=== PATIENT | female | born 1990 ===

== ENCOUNTER 2018-08-10 09:40 | Emergency (ER) | payer MEDICAID, OTHER ==
[2018-08-10] MEDS ORDERED: Sodium Chloride 0.9% 1,000 ML IV STA (10:06)
--- NOTE | 2018-08-10 10:09 | ED PDOC ---
HPI: Head Injury Time Seen by Provider: 08/10/18 09:55 History Per: Patient Injury Occurred (Timing): Days Ago: (3) Onset/Duration Of Symptoms: Days (3) Patient States: Fell Striking Head Severity: Moderate Loss Of Consciousness: Unwitnessed Additional Complaint(s): Possible LOC 3 days ago while showering. Pt has no recollection of event but thinks she fell and hit head. No precedent chest pain palpitaions, weakness or headache, but has since experienced headache, dizziness, blurry vision, nausea and numbness both hands. Past Medical History - Medical History PMH: Arthritis, HTN, Hypothyroidism - Surgical History Surgical History: Back Surgery, Cholecystectomy, Other surgeries: Left ovarian cyst removal - Family History Family History: States: Unknown Family Hx - Immunization History Hx Tetanus Toxoid Vaccination: No Hx Influenza Vaccination: Yes Hx Pneumococcal Vaccination: No - Home Medications Home Medications: Ambulatory Orders Medication Instructions Recorded Naproxen [Naprosyn] 500 mg PO Q12H #20 tab 08/10/18 Ondansetron [Zofran] 4 mg PO Q8H #10 tab 08/10/18 - Allergies Allergies/Adverse Reactions: Allergies Allergy/AdvReac Type Severity Reaction Status Date / Time morphine Allergy Mild RASH Verified 10/01/16 12:05 Review of Systems ROS Statement: Except As Marked, All Systems Reviewed And Found Negative Eyes: Positive for: Vision Change Cardiovascular: Negative for: Chest Pain, Palpitations Gastrointestinal: Positive for: Nausea. Negative for: Abdominal Pain Musculoskeletal: Positive for: Neck Pain, Back Pain Neurological: Positive for: Numbness, Headache, Other (Syncope) Physical Exam - Reviewed Nursing Documentation Reviewed: Yes Vital Signs Reviewed: Yes - Physical Exam Appears: Positive for: Non-toxic, No Acute Distress Head Exam: Positive for: ATRAUMATIC, NORMAL INSPECTION, NORMOCEPHALIC Skin: Positive for: Normal Color, Warm, DRY Eye Exam: Positive for: EOMI, Normal appearance, PERRL ENT: Positive for: Normal ENT Inspection Neck: Positive for: Normal, Painless ROM Cardiovascular/Chest: Positive for: Regular Rate, Rhythm Respiratory: Positive for: CNT, Normal Breath Sounds Gastrointestinal/Abdominal: Positive for: Normal Exam, Soft Back: Positive for: Normal Inspection Extremity: Positive for: Normal ROM Neurologic/Psych: Positive for: Alert, Oriented. Negative for: Motor/Sensory Deficits - Laboratory Results Result Diagrams: 08/10/18 12:00 08/10/18 12:00 Medical Decision Making Medical Decision Making: Syncope with head injury and subsequent concussion sxs. Will obtain labs and EKG to determine reason for syncope and CT head for head injury and concussive sxs. No lab, EKG or CT findings to account for syncope but as sxs were from 3 days ago can have furtehr w/u as outpt. Will refer to Neuro for concussive sxs. Disposition - Clinical Impression Clinical Impression: Syncope, Concussion - Patient ED Disposition Is Patient to be Admitted: No Counseled Patient/Family Regarding: Studies Performed, Diagnosis, Need For Followup, Rx Given - Disposition Referrals: Kassandra Tello MD [Medical Doctor] - [facility] [Outside] Disposition: Routine/Home Disposition Time: 12:46 Condition: FAIR Prescriptions: Naproxen [Naprosyn] 500 mg PO Q12H #20 tab Ondansetron [Zofran] 4 mg PO Q8H #10 tab Instructions: Syncope (Fainting), Concussion in Adults
[2018-08-10 11:13] VITALS: RESP 18; O2SAT 100
--- NOTE | 2018-08-10 11:29 | CT ---
Date of service: 08/10/2018 PROCEDURE: CT HEAD WITHOUT CONTRAST. HISTORY: r/o bleed COMPARISON: 03/27/2016. TECHNIQUE: Axial computed tomography images were obtained through the head/brain without intravenous contrast. Radiation dose: Total exam DLP = 733.55 mGy-cm. This CT exam was performed using one or more of the following dose reduction techniques: Automated exposure control, adjustment of the mA and/or kV according to patient size, and/or use of iterative reconstruction technique. FINDINGS: HEMORRHAGE: No intracranial hemorrhage. BRAIN: [place]-white matter differentiation is preserved. There is no mass, mass effect or abnormal extra-axial fluid collection. There is no territorial infarction. The midline sagittal structures are normal. VENTRICLES: The ventricles are normal in size, shape and configuration. CALVARIUM: There is no calvarial fracture or extracranial soft tissue swelling. PARANASAL SINUSES: Predominantly clear. MASTOID AIR CELLS: Predominantly clear. OTHER FINDINGS: None. IMPRESSION: No acute intracranial abnormality.
--- NOTE | 2018-08-10 11:40 | CT ---
Date of service: 08/10/2018 PROCEDURE: CT Cervical Spine without contrast HISTORY: injury COMPARISON: None available. TECHNIQUE: Axial computed tomography images were obtained of the cervical spine without the use of intravenous contrast. Coronal and sagittal reformatted images were created and reviewed. Radiation dose: Total exam DLP = 342.1 mGy-cm. This CT exam was performed using one or more of the following dose reduction techniques: Automated exposure control, adjustment of the mA and/or kV according to patient size, and/or use of iterative reconstruction technique. FINDINGS: VERTEBRAE: There is normal alignment of the cervical vertebral bodies. There is mild reversal of normal cervical lordosis. Vertebral height is normal. Bone mineralization is normal. There is no acute fracture or traumatic anterior listhesis. The craniocervical junction is normal. The atlantoaxial joint normal. DISCS/SPINAL CANAL/NEURAL FORAMINA: No significant central canal or neural foraminal stenosis. Discs heights are grossly preserved. PARASPINAL SOFT TISSUES: Unremarkable. OTHER FINDINGS: No prevertebral soft tissue thickening. No apical pneumothorax. IMPRESSION: No acute fracture or traumatic anterior listhesis. Mild reversal of normal cervical lordosis may be positional or related to muscle spasm.
[2018-08-10 12:24] LABS: BASO % 0.6 % (0.0-2.0); EOS % 0.7 % (0.0-4.0); HEMOGLOBIN 12.9 g/dL (12.0-16.0); LYMPH # 1.6 K/uL (1.0-4.3); LYMPH % 40.8 % (20.0-40.0); MEAN CELL VOLUME 88.4 fl (81.0-99.0); MEAN CORPUSCULAR HEMOGLOBIN 29.5 pg (27.0-31.0); MEAN CORPUSCULAR HGB CONC 33.4 g/dL (33.0-37.0); MEAN PLATELET VOLUME 8.8 fl (7.2-11.7); MONO # 0.3 K/uL (0.0-0.8); NEUT % 49.9 % (50.0-75.0); NRBC % 0.1 % (0.0-0.0); RBC 4.37 Mil/uL (3.80-5.20); RED CELL DISTRIBUTION WIDTH 13.4 % (11.5-14.5)
--- NOTE | 2018-08-10 12:27 | RAD ---
Date of service: 08/10/2018 HISTORY: Syncope COMPARISON: No prior. TECHNIQUE: Chest PA and lateral FINDINGS: LINES AND TUBES: None. LUNG AND PLEURA: The lungs are well inflated and clear. No pleural effusion or pneumothorax. HEART AND MEDIASTINUM: The heart is not enlarged. No aortic atherosclerotic calcifications present. The hilar and mediastinal contours are within normal limits. SKELETAL STRUCTURES: The bony structures are within normal limits for the patient's age. VISUALIZED UPPER ABDOMEN: Normal. OTHER FINDINGS: None. IMPRESSION: No active pulmonary disease.
[2018-08-10 12:30] LABS: ALB/GLOB RATIO 1.2 (1.0-2.1); ALBUMIN 4.7 g/dL (3.5-5.0); ALT/SGPT 87 U/L (9-52); AST/SGOT 118 U/L (14-36); BLOOD UREA NITROGEN 7 mg/dl (7-17); GFR NON-AFRICAN AMERICAN > 60
[2018-08-10 13:17] VITALS: BP 110/77; PULSE 70; TEMP 99
--- NOTE | 2018-08-10 20:28 | CARD ---
APPROVED REPORT Date of service: 08/10/2018 EKG Measurement Heart [id number] <Conclusion> Normal sinus rhythm Normal ECG
== END 2018-08-10 13:24 | disposition home or self-care (01) ==
LOC: H.ER 09:40
DX: R55 Syncope and collapse (principal); S06.0X0A Concussion without loss of consciousness, initial encounter; I10 Essential (primary) hypertension; Z79.899 Other long term (current) drug therapy; E03.9 Hypothyroidism, unspecified; W18.30XA Fall on same level, unspecified, initial encounter; Y93.E1 Activity, personal bathing and showering
CPT/HCPCS: 70450; 71046; 72125; 80053; 81025; 85025; 93005; 96361; 96374; 99285; J2405; J7030